=== PATIENT | female | born 1945 | race Caucasian/White ===

== ENCOUNTER 2021-02-14 02:36 | Outpatient (CLI) | payer BC, SELFPAY ==
--- NOTE | 2021-03-27 14:30 | W.CARDEVENT ---
Date of service: 03/27/21 Time of Service: 14:30 Cardiac Event Recorder Referring Provider:: Yana Indications:: Afib Cardiac Event Note: This is a 30-day event recorder order for indication of atrial fibrillation. ?The patient was in atrial fibrillation for the entirety of the recording (recording lasted 1 day and 10 hours) ?There were no episodes of ventricular tachycardia and no significant ectopy. ?There were 4 pauses greater than 3 seconds with the longest lasting 4.1 seconds. The patient had no reported symptoms during these events
== END 2021-02-14 02:37 | disposition home or self-care (01) ==
LOC: RT 02:36
PROVIDERS: PCP Family Medicine; Visit Provider Psychiatry & Neurology Neurology
DX: I48.91 Unspecified atrial fibrillation (principal); Z86.73 Personal history of transient ischemic attack (TIA), and cerebral infarction without residual deficits
CPT/HCPCS: 93270

== ENCOUNTER 2022-02-06 09:08 | Outpatient (CLI) | payer BC, SELFPAY ==
[2022-02-06 09:20] VITALS: BP 112/74; PULSE 71; RESP 18; TEMP 36.7; O2SAT 96
[2022-02-06] MEDS: methylPREDNISolone ACETATE 80 MG/ML VIAL IJ (09:57)
--- NOTE | 2022-02-06 09:59 | DI.RAD_ITS ---
Exam(s) XR PAIN CLINIC LUMBAR SP 2V EXAM: XR PAIN CLINIC LUMBAR SP 2V CLINICAL HISTORY: lumbar radiculopathy TECHNIQUE: 2D and realtime digital imaging was performed. COMPARISON: No exams were available for comparison FINDINGS: C-arm fluoroscopy was utilized by Dr. Sandoval during apparent epidural injection. Hard copy shows needl e placement at the L5-S1 level. IMPRESSION: RADIATION DOSE DELIVERED: Ka,r=1.85 mGy
[2022-02-06 10:05] VITALS: BP 126/69; PULSE 81; RESP 20; O2SAT 97
--- NOTE | 2022-02-06 10:48 | PDOC.PAIN_ITS ---
Pain Clinic Procedure Note Procedure Note Procedure Note: Lumbar Epidural Steroid Injection Procedure Note COMMENTS:I evaluated her on 01/02/22. She is allergic to Iodine contrast. Her pain VAS today is 6/10. DX: Lumbosacral radiculopathy YAAKOV MACIAS has been referred to the [facility] for lumbar epidural steroid injection. The patient was greeted by the nurse who verified patients name and . Patient was then taken to the fluoroscopy suite. The patient was interviewed and the medial record reviewed. There were no medical, pharmacologic, radiographic, or other structural contraindications to attempting fluoroscopically guided lumbar epidural steroid injection. Risks and expected side effects as well as potential benefits of the procedure were reviewed and voiced concerns expressed. The patient consent form was signed and witnessed. Standard patient time-out procedure was performed. The patient was placed in the prone position on the fluoroscopy table and automated blood pressure cuff and pulse oximeter applied. The skin entry point for entering/approaching the epidural space at L5-S1 and marked. Following thorough chlorhexadine preparation of the skin and draping and 1% lidocaine infiltration of the skin entry point and subcutaneous tissues, a 18 gauge Touhy needle was placed under fluoroscopic guidance and with loss of resistance technique into the epidural space. Needle tip placement and depth were aided and confirmed by fluoroscopy. There was no paresthesia or return of blood or CSF through the needle. 80mg depomedrol was injected. There was not any unusual discomfort expressed by YAAKOV MACIAS. Patient's vital signs were stable throughout the procedure and were as recorded in nursing records. Follow up plans and appointments were discussed with patient. Post procedure instruction was given as documented in nursing records and having met discharge criteria and was discharged from the [facility]. COMMENTS: If this procedure is helpful, it can be completed up to 3 times per 12 months. Post-procedure pain VAS = 0/10 Jonny Sandoval DO, MPH [facility] Management [facility]
== END 2022-02-06 09:09 | disposition home or self-care (01) ==
LOC: PC 09:09
PROVIDERS: PCP Family Medicine; Visit Provider Preventive Medicine Occupational Medicine
DX: M54.17 Radiculopathy, lumbosacral region (principal)
CPT/HCPCS: 62323; 72100; J1040

== ENCOUNTER → 2022-02-14 02:00 | Outpatient (CLI) | payer BC, SELFPAY ==
--- NOTE | 2022-02-14 | DI.RAD_ITS ---
Exam(s) XR CERVICAL SP SIMMONS TRAUMA 2-3V EXAM: XR CERVICAL SP SIMMONS TRAUMA 2-3V CLINICAL HISTORY: CERVICALGIA M54.2. TECHNIQUE: 2D digital imaging was performed. COMPARISON: No exams were available for comparison FINDINGS: Six views including flexion and extension views. There is no evidence of fracture nor ominous osseous lesions. There is disc space narrowing at C5-6 and C6-7 levels. No cervical ribs. There is no listhesis upon extension. Upon flexion there is mild degenerative anterolisthesis of C3 upon C4 and C4 upon C5, this related to facet arthropathy (moderate). IMPRESSION: Degenerative disc disease. Facet arthropathy. Mild listhesis as described above. This is only evid ent upon flexion. DATA REPOSITORY: RADIATION DOSE DELIVERED:
--- NOTE | 2022-02-14 | DI.MRI_ITS ---
Exam(s) MR CERVICAL SPINE WO EXAM: MR CERVICAL SPINE WO CLINICAL HISTORY: CERVICALGIA M54.2 NUMBNESS AND TINGLING UPPER EXTREMITY R20.0 R20.2 TECHNIQUE: Multiplanar multisequence MRI of the cervical spine was performed without intravenous con trast. COMPARISON: There are no plain films of the cervical spine available at time of this MRI interpretat ion FINDINGS: CERVICOMEDULLARY JUNCTION: Intact with no evidence of cerebellar tonsillar ectopia. No obvious abnor mality of the odontoid process. No evidence of Chiari 1 malformation. CERVICAL SPINAL CORD: There is no abnormal signal in the cervical spinal cord and no evidence of foca l cord atrophy nor focal cord swelling. OSSEOUS:There are no cervical fractures evident. No significant osseous lesions in the cervical vert ebrae. INDIVIDUAL LEVELS: C2-3: No disc herniation nor central canal stenosis. No foraminal stenosis. Moderate degenerative ch anges are noted in left facet joint. Milder degenerative changes are evident in the right facet join t. C3-4: No disc herniation nor central canal stenosis.Right facet joint unremarkable. There are modera te degenerative changes in the left facet joint. Mild foraminal stenosis on the left side. No rodrick inal stenosis. C4-5: Moderate-advanced disc space narrowing. On theright-side there is a disc-Luschka joint osteoph yte complex. This results in some mild narrowing of the exiting neural foramen. Moderate degenerati ve changes in the right facet joint and left facet joint at this level. C5-6: This level exhibits chronic advanced disc space narrowing. No prominent disc herniation or levi tral canal stenosis. There is bilateral foraminal stenosis, more so on the left side due to facet ar thropathy bilaterally. C6-7: This level also exhibits chronic advanced disc space narrowing. There is relatively symmetrica l annular bulging but no dominant disc herniation or central canal stenosis. There is only minimal d egenerative change in the facet joints at this level. Small bilateral Luschka joint osteophytes. No obvious foraminal stenosis. C7-T1: No disc herniation nor central canal stenosis. Mild bilateral facet arthropathy.No foraminal s tenosis. IMPRESSION: 1. Multilevel chronic degenerative disc disease as described above. However, there is noted dominant disc herniation and there is no evidence of central spinal canal stenosis.. There is multilevel for aminal stenosis as described above. 2. Degenerative changes in the facet joints as described above. 3. Normal appearing cervical spinal cord. DATA REPOSITORY:
--- NOTE | 2022-02-14 | DI.RAD_ITS ---
Exam(s) XR LUMBAR SPINE COMPLETE EXAM: XR LUMBAR SPINE COMPLETE CLINICAL HISTORY: RADICULOPATHY LUMBAR REGION M54.16. TECHNIQUE: 2D digital imaging was performed. COMPARISON: No exams were available for comparison FINDINGS: Eight views There is no evidence of lumbar fracture. There is, however, degenerative anterolisthesis of L4 upon L5. This is related to facet joint arthropathy. There are no pars defects. The L4-5 disc space exh ibits normal height. Advanced narrowing of L5-S1 disc space is noted. Disc spaces above this level exhibit normal height. Standing extension view reveals 7 millimeter no listhesis L4 upon L5. Standing flexion view reveals similar amount of anterolisthesis L4 upon L5. Mild facet arthropathy noted. Some degenerative disc disease is noted in the lower thoracic spine, i ncluding T12-L1 level. There are no significant osseous lesions. IMPRESSION: There is degenerative anterolisthesis L4 upon L5, approximately 7 millimeters both in flexion and ext ension. This is related to facet arthropathy. There are no pars interarticularis defects. There is advanced disc space narrowing at L5-S1 level. Sacroiliac joints appear unremarkable. DATA REPOSITORY: RADIATION DOSE DELIVERED:
== END ==
PROVIDERS: PCP Family Medicine; Visit Provider Nurse Practitioner
DX: M54.2 Cervicalgia (principal); R20.0 Anesthesia of skin; R20.2 Paresthesia of skin; M43.16 Spondylolisthesis, lumbar region; M48.07 Spinal stenosis, lumbosacral region; M43.12 Spondylolisthesis, cervical region
CPT/HCPCS: 72040; 72110; 72141